=== PATIENT | female | born 1980 | race Caucasian/White ===

== ENCOUNTER 2022-08-18 14:48 | Emergency (ER) | payer OTHER ==
[~2022-08-18] VITALS: Ht 149.9 cm; Wt 65.8 kg
[2022-08-18] MEDS ORDERED: ALLEGRA ALLERG180 MG PO (18:17)
== END 2022-08-18 18:37 | disposition home or self-care (01) ==
LOC: ER 14:48
DX: R21 Rash and other nonspecific skin eruption (principal); Z88.8 Allergy status to other drugs, medicaments and biological substances

== ENCOUNTER 2024-08-18 23:37 | Emergency (ER) | payer OTHER ==
[~2024-08-18] VITALS: Ht 149.9 cm; Wt 68.0 kg
[~2024-08-18 23:37] MED LIST: ALLEGRA ALLERG180 MG PO; CIPRO500 MG PO; DOLOGESIC 500-1 EACH PO
[2024-08-19] MEDS ORDERED: 0.9 % SODIUM CHLORIDE 1,000 ML IV SCH (00:45)
[2024-08-19] MEDS ORDERED: TRAMADOL HCL 50 MG TABLET PO ONE (00:45)
[2024-08-19 00:57] LABS: HEMATOCRIT 37.6 % (36.0-45.00); HEMOGLOBIN 12.2 g/dL (12.0-15.00); MEAN CELL VOLUME 81.1 fL (80.00-100.00); MEAN CORPUSCULAR HEMOGLOBIN 26.4 pg (27.00-32.0); MEAN CORPUSCULAR HGB CONC 32.6 g/dl (32.0-36.0); PLATELET COUNT 269 K/uL (150-450); RED BLOOD COUNT 4.63 M/uL (4.00-6.00); RED CELL DISTRIBUTION WIDTH 14.8 % (11.5-14.5)
[2024-08-19 01:10] LABS: URINE APPEARANCE Clear; URINE BILIRRUBIN Negative (NEGATIVE); URINE BLOOD NHT; URINE COLOR Yellow; URINE GLUCOSE Negative (NEGATIVE); URINE KETONE Negative (NEGATIVE); URINE LEUKOCYTE Trace; URINE NITRATE Negative; URINE PROTEIN Negative (NEGATIVE); URINE UROBILINOGEN 0.2 E.U./dl
[2024-08-19 01:13] LABS: URINE BACTERIA 646.3 uL (0.0-1933); URINE RBC 8.3 uL (0.0-20.8); URINE WBC 14.2 uL (0.0-23.2)
[2024-08-19 01:16] LABS: URINE CAST 0.15 uL (0.0-1.40)
[2024-08-19 01:28] LABS: ALBUMIN 3.7 gm/dL (3.4-5.0); BILIRUBIN TOTAL 0.35 mg/dL (0.3-1.2); CALCIUM 9.2 mg/dL (8.5-10.1); CREATININE SERUM 0.61 mg/dL (0.55-1.02); GFR 106.06; GLOBULINA 3.7 G/DL (2.4-3.5); POTASSIUM 3.67 mEq/L (3.5-5.1); TOTAL PROTEIN 7.4 gm/dL (6.4-8.2)
[2024-08-19] MEDS ORDERED: METHYLPREDNISOLONE SOD SUCC 125 MG VIAL IV ONE (05:15)
[2024-08-19] MEDS ORDERED: BACTRIM DS TAB1 EACH PO (06:22)
== END 2024-08-19 06:28 | disposition home or self-care (01) ==
LOC: ER 23:39
PROVIDERS: General Practice
DX: N30.90 Cystitis, unspecified without hematuria (principal); R10.31 Right lower quadrant pain; R10.9 Unspecified abdominal pain; Z88.6 Allergy status to analgesic agent
CPT/HCPCS: 36415; 74177; Q9965